=== PATIENT | male | born 1995 | race Caucasian/White ===

== ENCOUNTER → 2020-10-17 13:56 | Outpatient (CLI) | payer BC, SELFPAY ==
--- NOTE | ~2020-10-17 | US_ITS ---
EXAMINATION: US soft tissue groin LT, US soft tissue UE LT DATE: 10/17/2020 14:32 INDICATION: Palpable areas at the lateral left hip and at the anterior left upper arm. TECHNIQUE: Multiple grayscale and Doppler ultrasound images of the 2 regions of concern, lateral to t he left hip and at the anterior left upper arm were obtained. COMPARISON: None FINDINGS: Ovoid 2.1 x 1.8 x 0.6 cm subcutaneous soft tissue mass at the region of concern at the lateral left u pper thigh which is slightly hyperechoic but with similar echotexture to the surrounding subcutaneous fat. Similar-appearing 1.1 x 0.4 x 0.8 cm subcutaneous mass also slightly hyperechoic with similar e chotexture to the surrounding fat at the anterior aspect of the distal left upper arm. IMPRESSION: 1. Ovoid subcutaneous masses at the sites of both palpable abnormalities which are nonspecific but wi th appearance consistent with and statistically most likely to represent lipomas. If clinically indic ated CT or MRI could be obtained for definitive determination. Reviewed, dictated and finalized at location B. DIRECTOR IMPRESSION: 1. Ovoid subcutaneous masses at the sites of both palpable abnormalities which are nonspecific but with appearance consistent with and statistically most like ly to represent lipomas. If clinically indicated CT or MRI could be obtained fo r definitive determination.
== END ==
PROVIDERS: PCP Student in an Organized Health Care Education/Training Program; Visit Provider Student in an Organized Health Care Education/Training Program
DX: M79.89 Other specified soft tissue disorders (principal)
CPT/HCPCS: 76882